=== PATIENT | male | born 1975 | race Caucasian/White ===

== ENCOUNTER → 2019-01-03 | Outpatient (CLI) | payer OTHER ==
[~2019-01-03] MED LIST: ADDERALL 10 MG10 MG PO; AZATHIOPRINE50 MG PO; B12 PO; CRANBERRY300 MG PO; DOXYCYCLINE 10100 MG; LISINOPRIL10 MG; MULTIVITAMIN PO
[2019-01-03 14:07] LABS: ABSOLUTE BASOPHILS 0.1 thou/uL (0.0-0.2); ABSOLUTE EOSINOPHILS 0.1 thou/uL (0.0-0.7); ABSOLUTE LYMPHOCYTES 0.5 thou/uL (0.8-5.3); ABSOLUTE MONOCYTES 0.6 thou/uL (0.0-1.2); ABSOLUTE NEUTROPHILS 3.5 thou/uL (1.6-8.1); BASOPHILS 1.1 %; EOSINOPHILS 2.1 %; HEMATOCRIT 40.5 % (42.0-52.0); HEMOGLOBIN 13.9 gm/dL (14.0-18.0); LYMPHOCYTES 11.4 %; MCH 35.1 pg (26.0-34.0); MCHC 34.4 g/dL (28.0-37.0); MCV 102.3 fL (80.0-100.0); MONOCYTES 11.7 %; NUCLEATED RBCS 0 /100WBC; PLATELET COUNT* 299 thou/uL (150-400); POLYS 73.7 %; RBC 3.95 mil/uL (4.50-6.00); RDW-CV 14.7 % (10.5-14.5); WBC 4.8 thou/uL (4.0-11.0)
[2019-01-03 20:44] LABS: ALBUMIN 4.3 g/dL (3.4-5.0); CALCIUM 9.5 mg/dL (8.5-10.1); TOTAL BILIRUBIN 0.6 mg/dL (<0.1-1.0); TOTAL PROTEIN 7.8 g/dL (6.4-8.2)
[2019-01-03 20:49] LABS: POTASSIUM 4.6 mmol/L (3.5-5.1)
== END ==
LOC: M.LAB 13:46
PROVIDERS: Specialist
DX: K50.90 Crohn's disease, unspecified, without complications (principal)

== ENCOUNTER 2019-08-03 13:21 | Emergency (ER) | payer OTHER ==
[~2019-08-03] VITALS: Ht 165.1 cm; Wt 68.0 kg
[2019-08-03] MEDS ORDERED: LIALDA1.2 GM PO (13:28)
[2019-08-03 13:42] LABS: ABSOLUTE EOSINOPHILS 0.1 thou/uL (0.0-0.7); ABSOLUTE LYMPHOCYTES 0.5 thou/uL (0.8-5.3); ABSOLUTE MONOCYTES 0.6 thou/uL (0.0-1.2); ABSOLUTE NEUTROPHILS 4.8 thou/uL (1.6-8.1); BASOPHILS 0.5 %; EOSINOPHILS 1.1 %; HEMATOCRIT 43.1 % (42.0-52.0); HEMOGLOBIN 14.9 gm/dL (14.0-18.0); MCH 35.8 pg (26.0-34.0); MCHC 34.6 g/dL (28.0-37.0); MCV 103.4 fL (80.0-100.0); MONOCYTES 10.3 %; MPV 10.1 fl. (7.2-11.1); NUCLEATED RBCS 0 /100WBC; PLATELET COUNT* 254 thou/uL (150-400); POLYS 80.1 %; RBC 4.17 mil/uL (4.50-6.00); RDW-CV 15.1 % (10.5-14.5); WBC 5.9 thou/uL (4.0-11.0)
[2019-08-03 13:53] LABS: POTASSIUM 4.1 mmol/L (3.5-5.1)
[2019-08-03 13:54] LABS: APTT 29.6 Seconds (25.0-31.3); INR 0.9; PROTIME 9.7 Seconds (9.20-11.50)
[2019-08-03 13:57] LABS: ALBUMIN 4.5 g/dL (3.4-5.0); TOTAL BILIRUBIN 0.4 mg/dL (<0.1-1.0); TOTAL PROTEIN 8.3 g/dL (6.4-8.2)
[2019-08-03 14:30] VITALS: BP 123/79
--- NOTE | 2019-08-04 15:48 | EKG ---
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: [facility] : 1975 Requested By: Adrianna Woods Order Number: [id number] MD: Carlos Bowen Measurements Intervals [place] Rate: 107 P: 77 NV: 140 QRS: 49 QRSD: 82 T: 51 QT: 321 QTc: 429 Interpretive Statements Sinus tachycardia Probable left atrial enlargement Compared to ECG 03/05/2017 17:01:23 Sinus rate has increased Myocardial infarct finding no longer present Electronically Signed On 08-04-2019 15:47:50 CLINICAL ADMISSIONS MANAGER by Carlos Bowen [email or web address] <ELECTRONICALLY SIGNED> By: Carlos Bowen MD, [facility] 08/04/19 1547 1325 1325 Carlos Bowen MD, FACC /EPI
== END 2019-08-03 14:32 | disposition home or self-care (01) ==
LOC: M.ERS 13:21
PROVIDERS: Physician Assistant
DX: R07.89 Other chest pain (principal); I10 Essential (primary) hypertension; Z90.49 Acquired absence of other specified parts of digestive tract

== ENCOUNTER → 2020-11-23 | Outpatient (CLI) | payer BC ==
[~2020-11-23] MED LIST changes: +LIALDA1.2 GM PO
== END ==
LOC: M.RAD 08:45
PROVIDERS: ATTEND Internal Medicine
DX: M79.641 Pain in right hand (principal); M25.531 Pain in right wrist